=== PATIENT | male | born 1975 | race American Indian/Alaskan Native ===

== ENCOUNTER 2021-08-06 07:24 | Emergency (ER) | payer SELFPAY ==
--- NOTE | 2021-08-06 09:02 | Emergency Department Report ---
- General Chief Complaint: High BP Stated Complaint: BLOOD PRESSURE HIGH Source: patient Mode of arrival: Ambulatory Limitations: No Limitations - History of Present Illness Initial Comments: 46-year-old male presents to the ED complaining stuffy nose, facial pain, and cough x3. Patient states he has been out of his blood pressure medication x1 year has been taking his blood pressure hypertension medication . Patient states last taking hypertension medication x1 day ago. She states that he deals with a lot of sinus infection. Patient states taking anwq-[id number]-[id number] sinus medication without any relief. Patient is alert and oriented x3 . Patient denies any shortness of breath ,chest pain dizziness nausea or vomiting at present. MD Complaint: cough, nasal congestion, sinus pain Onset/Timin -: week(s) Severity: moderate Severity scale (0 -10): 6 Quality: aching Associated Symptoms: denies other symptoms - Related Data Previous Rx's Medication Instructions Recorded Last Taken Type Amoxicillin/Potassium Clav 1 each PO BID 10 Days #20 tab 08/06/21 Unknown Rx [Augmentin 875-125 Tablet] Losartan/Hydrochlorothiazide 1 each PO DAILY 30 Days #30 tab 08/06/21 Unknown Rx [Losartan-Hctz 100-25 mg Tab] predniSONE [Deltasone] 50 mg PO QDAY 5 Days #5 tab 08/06/21 Unknown Rx Allergies Allergy/AdvReac Type Severity Reaction Status Date / Time No Known Allergies Allergy Verified 08/06/21 07:29 ED Review of Systems ROS: Stated complaint: BLOOD PRESSURE HIGH Other details as noted in HPI Constitutional: denies: chills, fever Eyes: denies: eye pain, eye discharge, vision change ENT: ear pain, throat pain Respiratory: cough. denies: shortness of breath, wheezing Cardiovascular: denies: chest pain, palpitations Endocrine: no symptoms reported Gastrointestinal: denies: abdominal pain, nausea, diarrhea Genitourinary: denies: urgency, dysuria Musculoskeletal: denies: back pain, joint swelling, arthralgia Skin: denies: rash, lesions Neurological: denies: headache, weakness, paresthesias Psychiatric: denies: anxiety, depression Hematological/Lymphatic: denies: easy bleeding, easy bruising ED Past Medical Hx - Medications Home Medications: Home Medications Medication Instructions Recorded Confirmed Last Taken Type Amoxicillin/Potassium Clav 1 each PO BID 10 Days #20 tab 08/06/21 Unknown Rx [Augmentin 875-125 Tablet] Losartan/Hydrochlorothiazide 1 each PO DAILY 30 Days #30 tab 08/06/21 Unknown Rx [Losartan-Hctz 100-25 mg Tab] predniSONE [Deltasone] 50 mg PO QDAY 5 Days #5 tab 08/06/21 Unknown Rx ED Physical Exam - General Limitations: No Limitations General appearance: alert, in no apparent distress - Head Head exam: Present: atraumatic, normocephalic - Eye Eye exam: Present: normal appearance - ENT ENT exam: Present: mucous membranes moist - Expanded ENT Exam Expanded TM/Canal exam: Effusion: Right TM, Left TM, Mastoid Tenderness: Right TM, Left TM (maxillary ) - Neck Neck exam: Present: normal inspection - Respiratory Respiratory exam: Present: normal lung sounds bilaterally. Absent: respiratory distress - Cardiovascular Cardiovascular Exam: Present: regular rate, normal rhythm. Absent: systolic murmur, diastolic murmur, rubs, gallop - GI/Abdominal GI/Abdominal exam: Present: soft, normal bowel sounds - Rectal Rectal exam: Present: deferred - Extremities Exam Extremities exam: Present: normal inspection - Back Exam Back exam: Present: normal inspection - Neurological Exam Neurological exam: Present: alert, oriented X3 - Psychiatric Psychiatric exam: Present: normal affect, normal mood - Skin Skin exam: Present: warm, dry, intact, normal color. Absent: rash ED Course Vital Signs 08/06/21 07:29 Temperature 98.9 F Pulse Rate 86 Respiratory 20 Rate Blood Pressure 151/114 O2 Sat by Pulse 99 Oximetry ED Medical Decision Making - Medical Decision Making 46-year-old male presents to the ED complaining stuffy nose, facial pain, and cough x3. Patient states he has been out of his blood pressure medication x1 year has been taking his blood pressure hypertension medication . Patient states last taking hypertension medication x1 day ago. She states that he deals with a lot of sinus infection. Patient states taking [id number]-qdq-[id number] sinus medication without any relief. Patient is alert and oriented x3 . Patient den ies any shortness of breath ,chest pain dizziness nausea or vomiting at present. Physical examination patient has tenderness noted to the maxillary sinus. Nasal turbinates swollen , We will refill patient hypertension pressure medication. Rechecked the patient is resting quietly quietly and comfortable and feeling better. I discussed the results of diagnostic study, my clinical impression and the plan for further treatment with the patient. Patient agrees with plan and discharge at this present time. All question addressed. I have given the patient instruction regarding a diagnosis ,expectation ,follow- up and return precaution. I explained to the patient that emergent condition may arise and to return to the ED for new worsen and any new persisting condition. I have explained the importance of following up with the primary care physician or referral physician listed below has instructed. The patient verbalized understanding of discharge instruction. Critical care attestation.: If time is entered above; I have spent that time in minutes in the direct care of this critically ill patient, excluding procedure time. ED Disposition Clinical Impression: Acute sinusitis Qualifiers: Sinusitis location: maxillary Recurrence: non-recurrent Qualified Code(s): J01.00 - Acute maxillary sinusitis, unspecified Disposition: HOME / SELF CARE / HOMELESS Is pt being admited?: No Does the pt Need Aspirin: No Condition: Stable Instructions: Sinusitis, Adult Additional Instructions: Take medication as prescribed Return to ED for any worsening Prescriptions: Amoxicillin/Potassium Clav [Augmentin 875-125 Tablet] 1 each PO BID 10 Days #20 tab predniSONE [Deltasone] 50 mg PO QDAY 5 Days #5 tab Losartan/Hydrochlorothiazide [Losartan-Hctz 100-25 mg Tab] 1 each PO DAILY 30 Days #30 tab Referrals: [facility] [Provider Group] - 3-5 Days Time of Disposition: 09:07
[2021-08-06 09:31] VITALS: BP 151/114
== END 2021-08-06 09:38 | disposition home or self-care (01) ==
LOC: ED 07:24
DX: J01.90 Acute sinusitis, unspecified (principal)
CPT/HCPCS: 99282